=== PATIENT | male | born 1960 | race Caucasian/White ===

== ENCOUNTER → 2023-07-20 | Outpatient (CLI) | payer OTHER ==
[~2023-07-20] MED LIST: ANTIVERT 25MG25 MG PO; ASPIRIN 81M81 MG/TA2 PO; COZAAR 50MG50 MG/TAB PO; CRESTOR40 MG PO; ELIQUIS 5MG PO; GLUCOPHAGE1000 MG PO; LANTUS100 U/ML SQ; PLAVIX 75MG TAB75 MG PO
== END ==
LOC: COL.RAD 15:47
DX: R42 Dizziness and giddiness (principal)

== ENCOUNTER 2023-07-28 09:53 | Day surgery (SDC) | payer OTHER ==
[~2023-07-28] VITALS: Ht 170.2 cm; Wt 93.8 kg
[~2023-07-28 09:53] MED LIST changes: -ANTIVERT 25MG25 MG PO; -ASPIRIN 81M81 MG/TA2 PO; -COZAAR 50MG50 MG/TAB PO; -CRESTOR40 MG PO; -ELIQUIS 5MG PO; -GLUCOPHAGE1000 MG PO; -LANTUS100 U/ML SQ; +LR 1,000 ML IV SCH; +Ondansetron 4 MG/2 ML VIAL IV PRN; -PLAVIX 75MG TAB75 MG PO
[2023-07-28] MEDS ORDERED: ELIQUIS 5MG PO (11:33)
[2023-07-28] MEDS ORDERED: PLAVIX 75MG TAB75 MG PO (11:34)
[2023-07-28] MEDS ORDERED: ASPIRIN 81M81 MG/TA2 PO (11:35)
[2023-07-28] MEDS ORDERED: ANTIVERT 25MG25 MG PO (11:35)
[2023-07-28] MEDS ORDERED: COZAAR 50MG50 MG/TAB PO (11:35)
[2023-07-28] MEDS ORDERED: GLUCOPHAGE1000 MG PO (11:36)
[2023-07-28] MEDS ORDERED: CRESTOR40 MG PO (11:37)
[2023-07-28] MEDS ORDERED: LANTUS100 U/ML SQ (11:38)
[2023-07-28] MEDS ORDERED: Lidocaine PF 2% (20 MG/ML) 5 ML VIAL ONE (12:00)
[2023-07-28 12:38] VITALS: BP 152/96; PULSE 58; TEMP 97.1
[2023-07-28 12:50] VITALS: BP 150/91; PULSE 60; TEMP 97.2
[2023-07-28 13:05] VITALS: BP 130/86; PULSE 60
[2023-07-28 13:20] VITALS: BP 154/87; PULSE 60
--- NOTE | 2023-07-28 13:30 | NUR ---
1250 RETURNS TO ROOM 8 PER CART. AWAKE, ALERT. RESP UNLABORED. AMBULATES TO RECLINER WITH STANDBY ASSIST. DENIES NAUSEA OR ABD PAIN.. VITAL SIGNS OBTAINED. CALL LIGHT AT SIDE. 1252 DR. LEWIS HERE TO VISIT WITH PATIENT 1305 TOLERATES PO SODA AND MUFFIN WITHOUT NAUSEA 1315 DISCHARGE INSTRUCTIONS REVIEWED. PATIENT VERBALIZES UNDERSTANDING. COPY PROVIDED IN DISCHARGE FOLDER 1322 DRESSES SELF
== END 2023-07-28 13:30 | disposition home or self-care (01) ==
LOC: SDCO 09:53
DX: Z12.11 Encounter for screening for malignant neoplasm of colon (principal); K57.30 Diverticulosis of large intestine without perforation or abscess without bleeding; E11.42 Type 2 diabetes mellitus with diabetic polyneuropathy; Z79.4 Long term (current) use of insulin
CPT/HCPCS: J2704; J7120